=== PATIENT | male | born 1965 | race Caucasian/White ===

== ENCOUNTER 2020-10-10 06:20 | Emergency (ER) | payer OTHER, BC, SELFPAY ==
[2020-10-10] VITALS (17 sets, daily range): BP systolic 119–139; BP diastolic 64–78; PULSE 57–77; RESP 13–19; TEMP 36.2; O2SAT 95–100
--- NOTE | 2020-10-10 06:15 | RT.EKG_ITS ---
APPROVED REPORT Exam: Resting ECG Reason for Exam: head injury/amnesia Patient Location: E HR:67 bpm ECG Measurements Heart Rate 67 AXIS UT 156 P 14 QRSd 97 QRS 79 QT 408 T 32 QTc 432 Conclusion Sinus rhythm...normal P axis, V-rate 60- 99 Normal [place] Normal Electrocardiogram
--- NOTE | 2020-10-10 06:28 | W.ED.GENAD ---
Discharge Plan Disposition Patient Disposition: OTHER Condition: Stable Discharge Details Clinical Impression: CHI (closed head injury), Traumatic subarachnoid hemorrhage with loss of consciousness, Subdural hematoma ED Provider: Fitz Lazo Home Meds and New Rx's Prescriptions: No Action No Known Home Meds RF: 0 Medical Decision Making Patient here status post presumed fall with loss of consciousness. Small laceration to right occipital scalp. Complains of headache and neck pain. GCS of 15 and neurologically intact at this time. Received Zofran for nausea. No other apparent injury with no chest wall tenderness, difficulty breathing, abdominal tenderness, back tenderness. Will obtain CT head and cervical spine, EKG, basic lab. Patient's EKG is normal. CBC and BMP are good. Glucose a little high at 156. Alcohol level 0. CT scan of the head shows a small left frontal/temporal subdural hematoma measuring 3 mm, and anterior parafalcine subdural/subarachnoid hemorrhage, small hemorrhagic contusion inferior medial left frontal lobe and a suspected nondisplaced nondepressed right occipital fracture. Cervical spine is negative. [facility], [facility] are not accepting transfers. Patient is from [place]. Call placed to [facility] in [place]. Case discussed with trauma surgeon, Dr. Adams. Patient accepted for ED to ED transfer. Patient will remain in [facility] for transport. He was given IV Tylenol for his pain. Tetanus is updated. Fluids are started. Patient logrolled, laceration irrigated and cleaned, 1 staple placed. Patient to be transferred by ambulance. Lab Data Lab results reviewed: Yes I reviewed the patient's lab results. HPI General Mode of arrival: EMS. Date/Time Provider Initiated Documentation: 10/10/20 06:28. Limitations to Documentation: no limitations. Information obtained by: patient and EMS. 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 Patient is now awake and alert but does not really have recollection of what occurred. 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 He was found beside his truck unconscious. Patient really is not sure exactly what happened. Thinks he slipped and fell but seems to have amnesia related to what happened while up here. Currently has headache and posterior neck pain. He had some nausea with he received Zofran for. He denies any chest pain, shortness of breath, abdominal pain, weakness. He has no significant past medical history and is on no medications. Related Data Home Medications Medication Instructions Recorded Confirmed Unknown [No Known Home Meds] 10/10/20 10/10/20 Allergies Allergy/AdvReac Type Severity Reaction Status Date / Time No Known Allergies Allergy Unverified 10/10/20 06:38 Review of Systems Narrative: 01/11 Review of Systems completed and is negative except as stated above in HPI (Systems reviewed: Const, Eyes, ENT, Resp, CV, GI, , MSK, Skin, Neuro) [facility] Medical History (Updated 10/10/20 @ 08:07 by Fitz Lazo MD) No significant past medical history Social History Smoking risk assessment performed?: No Do you feel safe at home: Yes Exam Narrative Exam Narrative: Const: WDWN male in NAD. HEENT: NC. Normal facial exam. Eyes: PERRL and EOMI Neck: Trachea midline. Collared. Lungs: Normal respiratory effort. Lungs are clear. No chest wall tenderness. Cor: RRR without murmur/gallop. Good radial pulses. GI: Soft. NT/ND. No guarding or rebound. Back: No midline tenderness. Neuro: A+O x 3. GCS 15. Normal speech, mentation. Amnestic of event. Cranial nerves II - XII grossly intact. No gross motor or sensory deficit. Ext: No C/C/E. No deformity/tenderness. Skin: Warm and dry with occipital laceration. Procedures Laceration Laceration 1: Site: scalp Side (If applicable): right Size (cm): 0.5 Description: linear Depth: simple, single layer Pre-repair: irrigated extensively Skin layer closed with: other (stapler) Number of sutures: 1 Critical Care Time Critical Care Time Critical Care Time: Yes Total Critical Care Time: 45 Attestation: Upon my evaluation, this patient had a high probability of imminent or life-threatening deterioration, which required my direct attention, intervention, and personal management. I have personally provided 45 minutes of critical care time exclusive of time spent on separately billable procedures. Time includes review of laboratory data, radiology results, discussion with consultants, and monitoring for potential decompensation. Interventions were performed as documented above.
--- NOTE | 2020-10-10 06:30 | DI.CT_ITS ---
Exam(s) CT HEAD CERVICAL SPINE WO EXAM: CT HEAD CERVICAL SPINE WO CLINICAL HISTORY: trauma/fall. TECHNIQUE: Imaging Protocol: Axial computed tomography images with coronal and sagittal reformatted images were created and reviewed COMPARISON: No exams were available for comparison FINDINGS: Head CT Ventricles and Extra axial spaces: Normal in size and morphology for the patient's age. Hemorrhage: Small focal area of hemorrhage in the anterior inferior left frontal lobe. Hemorrhage se en along the anterior falx. Small amount of subdural hemorrhage seen in the anteroinferior left fron steve and temporal regions measuring less than 3 millimeters in thickness. Cerebral parenchyma: No evidence of mass or infarct. Midline shift: None. Brainstem/Cerebellum: Normal. Calvarium: Nondisplaced right occipital fracture. Visualized Paranasal sinuses/Mastoids: Clear. Cervical Spine CT BONES: Vertebral body heights are maintained. Alignment is normal. There is no evidence of acute frac ture. Degenerative disc changes and facet degenerative changes are seen . SOFT TISSUES: No paraspinal hematoma. The airway appears intact. Thyroid, submandibular and parotid glands unremarkable. No pneumothorax is seen at the lung apices. IMPRESSION: Head CT: Small anteromedial left frontal hemorrhagic contusion. Small subdural hematomas along the f berna and anteroinferior left frontal and temporal regions. Nondisplaced right occipital skull fractur e. C-spine CT: Degenerative changes, no acute abnormality. RADIATION DOSE DELIVERED: 1,489.9mGy.cm Total DLP DATA REPOSITORY: All CT scans at this facility are submitted to the National Radiology Data Registry (NRDR) Dose Index Registry (DIR) with the [employer] ([employer]). RADIATION OPTIMIZATION: All CT scans at this facility use at least one of these dose optimization te chniques: automated exposure control; mA and/or kV adjustment per patient size (includes targeted exa ms where dose is matched to clinical indication); or iterative reconstruction.
[2020-10-10 07:01] LABS: Abs Immature Grans 0.03 10^3/uL (0.0-0.06); Absolute Basophil Count 0.04 10^3/uL (0.0-0.2); Absolute Eosinophil Count 0.16 10^3/uL (0.0-0.7); Absolute Lymphocyte Count 2.34 10^3/uL (1.2-3.4); Absolute Monocyte Count 0.85 10^3/uL (0.1-0.8); Basophils % 0.5; Eosinophils % 2.2; HCT 42.7 % (40.0-50.0); HGB 14.4 g/dL (13.5-17.5); Immature Grans % 0.4; Lymphocytes % 31.5; MCH 32.1 pg (27.0-33.0); MCHC 33.7 % (32.0-36.0); MCV 95.1 fL (80-95); MPV 11.6 fL (8.0-11.0); Monocytes % 11.5; Neutrophils % 53.9; Nucleated RBC 0 %; Platelet Count 198 10^3/uL (130-400); RBC 4.49 10^6/uL (4.36-5.78); RDW 12.2 % (11.8-14.1); RDW-SD 42.8 fL; WBC 7.42 10^3/uL (4.4-10.8)
[2020-10-10 07:12] LABS: Anion Gap 7.5 mmol/L (3-11); BUN 16 mg/dL (7-18); CO2 27.5 mmol/L (21.0-32.0); Calcium 8.5 mg/dL (8.5-10.1); Chloride 104 mmol/L (98-107); Glucose 156 mg/dL (74-106); Magnesium 2.1 mg/dL (1.8-2.4); Potassium 4.2 mmol/L (3.5-5.1); Sodium 139 mmol/L (136-145)
--- NOTE | 2020-10-10 07:14 | DI.VRAD_ITS ---
Addendum created by Santhosh Plata MD on 10/10/2020 7:17:02 AM EDT: THIS REPORT CONTAINS FINDINGS THAT MAY BE CRITICAL TO PATIENT CARE. The findings were verbally communicated via telephone conference with LANEY JONES at 7:16 AM EDT on 10/10/2020. The findings were acknowledged and understood. 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 Radiation optimization: All CT scans at this facility use at least one of these dose optimization techniques: automated exposure control; mA and/or kV adjustment per patient size (includes targeted exams where dose is matched to clinical indication); or iterative reconstruction. COMPARISON: No relevant prior studies available. FINDINGS: Brain: Small left frontal and temporal subdural hematoma, measuring less than 3 mm thickness. Minimal anterior parafalcine subdural/subarachnoid hemorrhage. Hemorrhagic contusion inferior medial left frontal lobe. No other mass, positive mass effect or midline shift no other areas of intracranial hemorrhage. Cerebral ventricles: No ventriculomegaly. Paranasal sinuses: Paranasal sinuses are unremarkable as demonstarted. Mastoid air cells: Mastoid air cells are unremarkable as demonstrated. Bones/joints: Suspect linear nondisplaced nondepressed right occipital fracture. No other linear or depressed skull fractures. No lytic or blastic lesions. Soft tissues: Mild right occipital scalp contusion. IMPRESSION: 1. Small left frontal and temporal subdural hematoma, measuring less than 3 mm thickness. Minimal mass effect. 2. Minimal anterior parafalcine subdural/subarachnoid hemorrhage. 3. Small hemorrhagic contusion inferior medial left frontal lobe. 4. Suspect linear nondisplaced nondepressed right occipital fracture. 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 Radiation optimization: All CT scans at this facility use at least one of these dose optimization techniques: automated exposure control; mA and/or kV adjustment per patient size (includes targeted exams where dose is matched to clinical indication); or iterative reconstruction. COMPARISON: No relevant prior studies available. FINDINGS: Bones/joints: No acute fracture or posttraumatic subluxation. Mild straightening of the normal cervical lordosis with dextroconvex curvature, positional versus muscle spasm. Arthritic change articulation anterior arch of C1 and dens of C2 without significant central stenosis. No basilar invagination. Discs/Spinal canal/Neural foramina: Mild multilevel degenerative disc disease without significant central stenosis or neural foraminal narrowing. Lungs: Lung apices are unremarkable. Soft tissues: Prevertebral and paraspinal soft tissues are unremarkable. IMPRESSION: 1. No acute fracture or posttraumatic subluxation. 2. Mild straightening of the normal cervical lordosis with dextroconvex curvature, positional versus muscle spasm. Dictated and Authenticated by: Santhosh Plata MD. Ordering:KIM Byrnes MD
[2020-10-10 07:39] LABS: ETHANOL BLOOD < 3.0 mg/dL (<3)
[2020-10-10] MEDS: Tetanus & Diphtheria Tox,ADULT 0.5 ML VIAL IM (07:46)
[2020-10-10] MEDS: ACETAMINOPHEN 1,000 MG/100 ML BTL 400 MG IVPB (07:48)
--- NOTE | 2020-10-23 11:55 | NUR.NOTE ---
chart accessed to obtain more information for consent
== END 2020-10-10 08:29 | disposition other institution (70) ==
LOC: ER 08:29
PROVIDERS: Emergency Provider Emergency Medicine
DX: S06.6X9A Traumatic subarachnoid hemorrhage with loss of consciousness of unspecified duration, initial encounter (principal); S06.5X9A Traumatic subdural hemorrhage with loss of consciousness of unspecified duration, initial encounter; S01.01XA Laceration without foreign body of scalp, initial encounter; W19.XXXA Unspecified fall, initial encounter; Y99.0 Civilian activity done for income or pay; R40.2412 Glasgow coma scale score 13-15, at arrival to emergency department
CPT/HCPCS: 12001; 36415; 80048; 90471; 93005; 96365; 99291; 70450; 72125; 80320; 83735; 85025; 93010; J0131